=== PATIENT | female | born 1940 | race Two or more races ===

== ENCOUNTER → 2017-05-16 | Outpatient (CLI) | payer MEDICARE, OTHER ==
--- NOTE | ~2017-05-16 | BD1 ---
[facility] A Service of [facility] RADIOLOGY TEXT RESULTS PATIENT: CLEMENTINE CERNA ANGELY LOCATION: [facility] : 44 UNIT #: [id number] AGE: [address]: DONITA ROSADO MD SEX: F ORDER DR: [id number] [facility] [address] [place], [place] [address] [id number] O MR#: [id number] Acc #: [id number] NAME: CLEMENTINE CERNA : 1940 SEX: F STUDY DATE/TIME: 05/16/2017 8:47 UNIT: [facility] ROOM: STUDY DESCRIPTION: BD Dexa Bone Dens 1+ Site Attending Physician: Donita Rosado M.D. Referring Physician: Donita Rosado M.D. Ordering Physician: Donita Rosado M.D. Primary Care Physician: Donita Rosado M.D. MEDICAL IMAGING REPORT This report is preliminary unless electronic signature is present EXAM DXA scan 05/16/2017 HISTORY Status post menopause with no hormone replacement therapy. Osteopenia. Arthritis and diabetes. Hypertension with blood pressure medication. FINDINGS Bone mineral density in the lumbar spine from L1-L4 is 0.762 g/cm2 which is 2.6 standard deviations below the mean when compared to the young adult reference population which is characteristic of osteoporosis. This is 0.2 standard deviations below the mean when compared to the age-matched population. Bone mineral density in the left femoral neck was 0.58 g/cm2 which is 2.4 standard deviations below the mean when compared to the young adult reference population which is characteristic of osteopenia. This is 0.3 standard deviations below the mean when compared to the age-matched population. IMPRESSION Bone mineral density in the lumbar spine characteristic of osteoporosis and within the left hip characteristic of osteopenia. Dictated by... Jj Yang M.D. THIS IS AN ELECTRONICALLY VERIFIED REPORT Jj Yang M.D. at 05/19/2017 7:32 AM KRT/luis enrique TD: 05/16/2017 17:27 JOB #: [id number] [facility] A Service of [facility] RADIOLOGY TEXT RESULTS PATIENT: CLEMENTINE CERNA LOCATION: [facility] : 44 UNIT #: [id number] AGE: [address]: DONITA ROSADO MD SEX: F ORDER DR: MEDICAL IMAGING REPORT Page 1 of 1 COPY
--- NOTE | ~2017-05-16 | MY29 ---
[facility] A Service of [facility] RADIOLOGY TEXT RESULTS PATIENT: CLEMENTINE CERNA ANGELY LOCATION: [facility] : 44 UNIT #: [id number] AGE: [address]: DONITA ROSADO MD SEX: F ORDER DR: [id number] [place] [id number] [facility]. [place], [place] [address] [id number] O MR#: [id number] Acc #: [id number] NAME: CLEMENTINE CERNA : 1940 SEX: F STUDY DATE/TIME: 05/16/2017 8:45 UNIT: [facility] ROOM: STUDY DESCRIPTION: MY PRASHANTH SCREENING W/ CAD BILAT Attending Physician: Donita Rosado M.D. Referring Physician: Donita Rosado M.D. Ordering Physician: Donita Rosado M.D. Primary Care Physician: Donita Rosado M.D. MEDICAL IMAGING REPORT This report is preliminary unless electronic signature is present EXAM Bilateral digital screening mammogram with CAD, 05/16/2017. HISTORY Positive family history of breast cancer (relative not designated). No personal history of breast cancer. No current complaints. COMPARISON Patient states she had a previous mammogram performed in [place], [place]; facility and date unknown. Therefore, no prior exams are available, and the current study serves as the new baseline exam. FINDINGS CC and MLO views were obtained of each breast, utilizing digital technique, and reviewed with an FDA-approved CAD device. Scattered fibroglandular densities are present bilaterally. Subtle fibronodular changes are demonstrated within each breast. However, no discrete suspicious nodule, architectural distortion, or cluster of microcalcification is seen. IMPRESSION Benign findings. Fibronodular changes within each breast. No features suspicious malignancy. Routine bilateral screening mammogram is recommended in 1 year. Patients over the age of 40 are entered into a reminder system with target due date for the next mammogram. A result letter will also be sent to the patient. BIRADS: 2 Benign finding. Dictated by... [facility] A Service [facility] RADIOLOGY TEXT RESULTS PATIENT: CLEMENTINE CERNA LOCATION: [facility] : 42 UNIT #: [id number] AGE: [address]: DONITA ROSADO MD SEX: F ORDER DR: Holly Kuhn M.D. THIS IS AN ELECTRONICALLY VERIFIED REPORT Holly Kuhn M.D. at 05/21/2017 3:26 PM AZRA/gale TD: 05/16/2017 17:30 JOB #: [id number] MEDICAL IMAGING REPORT Page 1 of 1 COPY
== END | disposition home or self-care (01) ==
LOC: CWCC 08:17
DX: Z12.31 Encounter for screening mammogram for malignant neoplasm of breast (principal); M81.0 Age-related osteoporosis without current pathological fracture; Z80.3 Family history of malignant neoplasm of breast; N64.89 Other specified disorders of breast; M85.88 Other specified disorders of bone density and structure, other site
CPT/HCPCS: 77080; G0202